=== PATIENT | male | born 1960 | race Caucasian/White ===

== ENCOUNTER 2019-08-10 07:39 | Observation (INO) ==
[2019-08-10] MEDS ORDERED: NITROGLYCERIN SL 0.4 MG/TAB TAB SL PRN ×2 (07:49→11:24)
[2019-08-10] MEDS ORDERED: ASPIRIN CHEW 324 MG PO STA (07:49)
--- NOTE | 2019-08-10 07:53 | Emergency Department Note ---
History of Present Illness General Chief complaint: Chest Pain Stated complaint: CHEST PAIN,SOB Source: patient Mode of arrival: ambulatory Limitations: no limitations History of Present Illness Maximum Pain Intensity: 3 This patient is a 58-year-old male who presents to the emergency department complaining of chest pain. The patient states that he was loading a table and developed a sudden, severe pain in the center of his chest. He states this occurred 45 minutes prior to arrival. He states there was associated shortness of breath and sweating. He states he has never had symptoms like this before. He states his current discomfort was a 10/10 and now rates his pain a 3/10. He states pain is better when he is resting. He did not take any medication prior to arrival here. Patient denies any history of heart disease. He is a smoker. He denies any medical problems, but does note that he does not regularly see a primary care provider. He has never had a stress test. Patient notes a history of DE in both his mother and father. Home Medications Home Medications Medication Instructions Recorded Confirmed Type No Known Home Medications 08/10/19 08/10/19 History Allergies Allergy/AdvReac Type Severity Reaction Status Date / Time No Known Allergies Allergy Unverified 08/10/19 08:02 Past Med/Surg History Medical History Alcohol use (Chronic) Tobacco use (Chronic) Surgical History History of hemorrhoidectomy (Chronic) Family History Father Heart disease Coronary heart disease Hypertension Mother Heart disease Hypertension Cancer Brother Coronary heart disease Cancer Social History Preferred Language: Icelandic Communication Ability: Effective 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 Beliefs That Will Affect Care: None Current Living Situation: Alone Other Information That Helps Us Care for You: No Feels Safe at Home: Yes Safety Concerns: Feels Safe At This Time Smoking Status: Current every day smoker Tobacco Type: cigarettes ; Cigarettes Per Day: 20-40 ; Do You Dip or Chew Tobacco: No ; Second Hand Exposure: No ; Tobacco Cessation Education Requested by Patient: No Hx Alcohol Use: Yes (6 beers a day) Alcohol type: beer Hx Substance Use: Yes substance use type: marijuana Review of Systems A total of 10 systems reviewed and were otherwise negative Physical Exam Vital Signs Vital Signs - 24 hr 08/10/19 07:39 08/10/19 08:02 08/10/19 08:22 Temperature 36.6 C Temperature Source Oral Sepsis Recent Fever Within 48 Hours No Sepsis New/Unexplained Change in Mental Status No Sepsis Action Taken by Nursing No Action Required Pulse Rate 70 63 Pulse Rate [Apical] 65 Pulse Rhythm Regular Regular Pulse Rhythm [Apical] Regular Pulse Strength Normal Pulse Strength [Apical] Normal Respiratory Rate 22 20 18 Respiratory Effort / Characteristics Non-Labored Spontaneous Non-Labored Spontaneous Respiratory Depth Normal Normal Respiratory Pattern Regular Regular Blood Pressure 146/99 H Blood Pressure [Right Arm] 140/93 Blood Pressure Mean 114 Blood Pressure Mean [Right Arm] 108 Blood Pressure Position Sitting Blood Pressure Position [Right Arm] Lying Pulse Oximetry 96 96 94 Oxygen Delivery Method Room Air Room Air Room Air 08/10/19 08:58 Temperature Temperature Source Sepsis Recent Fever Within 48 Hours Sepsis New/Unexplained Change in Mental Status Sepsis Action Taken by Nursing Pulse Rate Pulse Rate [Apical] 61 Pulse Rhythm Pulse Rhythm [Apical] Regular Pulse Strength Pulse Strength [Apical] Normal Respiratory Rate 20 Respiratory Effort / Characteristics Non-Labored Spontaneous Respiratory Depth Normal Respiratory Pattern Regular Blood Pressure Blood Pressure [Right Arm] 142/97 H Blood Pressure Mean Blood Pressure Mean [Right Arm] 112 Blood Pressure Position Blood Pressure Position [Right Arm] Sitting Pulse Oximetry 96 Oxygen Delivery Method Room Air VITALS: Vitals are noted on the nurse's note and reviewed by myself. GENERAL: This is a 58-year-old male, in mild distress, anxious appearing, well- developed well-nourished. SKIN: The skin was without rashes. EARS: External auditory canals clear, tympanic membranes pearly chance without erythema or effusion bilaterally. EYES: Pupils equal round and reactive to light and accommodation. MOUTH: Mucous membranes moist. Tonsils are not enlarged. Pharynx without erythema or exudate. NECK: Supple without nuchal rigidity. No lymphadenopathy. HEART: Regular rate and rhythm without murmurs gallops or rubs. LUNGS: Clear to auscultation bilaterally without wheezes, rales or rhonchi. No retractions or accessory muscle use. ABDOMEN: Positive bowel sounds x 4. Soft, nontender to palpation. MUSCULOSKELETAL: No reproducible tenderness to palpation. EXTREMITIES: No peripheral edema. NEURO: Patient was alert and oriented to person place and time. Course Consultations Consultation #1: [id number]: Yelena Carrillo PA-C, [facility] hospitalist [facility] hospitalist team was consulted for admission. Administered Medications Discontinued Medications Aspirin (Aspirin) 324 mg PO NOW STA Stop: 08/10/19 07:50 Last Admin: 08/10/19 07:53 Dose: 324 mg Documented by: [id number] Gabapentin (Neurontin) 1,200 mg PO 1130 ONE Stop: 08/10/19 11:31 Last Admin: 08/10/19 12:02 Dose: Not Given Documented by: [id number] Medical Decision Making Differential Diagnosis Differential diagnosis includes acute coronary syndrome, pulmonary embolism, pneumothorax, pericarditis, myocarditis, endocarditis, anxiety, musculoskeletal pain, GERD, costochondritis, pneumonia, among others. Home Medications Current Medication List: was personally reviewed by me Laboratory Data Attestation: I reviewed the patient's lab results. Result diagrams: 08/10/19 07:50 08/10/19 07:50 Lab Results 08/10/19 08/10/19 08/10/19 Range/Units 07:50 07:50 07:50 WBC 8.32 (4.8-10.8) K/uL RBC 5.18 (4.7-6.1) M/uL Hgb 17.1 (14.0-18.0) g/dL Hct 48.6 (42-52) % MCV 93.8 (80-100) fL MCH 33.0 (25-34) pg MCHC 35.2 (32-36) g/dL RDW Std Deviation 44.0 (36.4-46.3) fL RDW Coeff of Clyde 12.8 (11.5-14.5) % Plt Count 191 (130-400) K/uL MPV 10.8 H (7.4-10.4) fL Immature Gran % (Auto) 0.1 % Neut % (Auto) 58.8 % Lymph % (Auto) 29.8 % [place] % (Auto) 6.9 % Eos % (Auto) 4.2 % Baso % (Auto) 0.2 % Immature Gran # (Auto) 0.01 (0.00-0.02) K/uL Neut # (Auto) 4.89 (1.4-6.5) K/uL Lymph # (Auto) 2.48 (1.2-3.4) K/uL [place] # (Auto) 0.57 (0.11-0.59) K/uL Eos # (Auto) 0.35 (0-0.5) K/uL Baso # (Auto) 0.02 (0-0.2) K/uL PT 10.0 (9.0-12.0) Seconds INR 1.0 (0.9-1.1) APTT 25.5 (21.0-31.0) Seconds PTT Ratio 0.9 Sodium 138 (136-145) mmol/L Potassium 3.9 (3.5-5.1) mmol/L Chloride 105 (98-107) mmol/L Carbon Dioxide 25 (21-32) mmol/L Anion Gap 9.0 (3-11) BUN 17 (7-18) mg/dl Creatinine 1.08 (0.6-1.4) mg/dl Est Cr Clr Drug Dosing 81.8 ml/min Est GFR ( Amer) 87.2 Est GFR (Non-Af Amer) 75.3 BUN/Creatinine Ratio 15.5 (10-20) Glucose 93 (70-99) mg/dl Calcium 9.8 (8.5-10.1) mg/dl Total Bilirubin 0.9 (0.2-1) mg/dl AST 29 (15-37) U/L ALT 27 (12-78) U/L Alkaline Phosphatase 69 (45-117) U/L POC Troponin I (0-0.045) ng/ml Troponin I 0.074 H* (0-0.045) ng/ml Total Protein 8.7 H (6.4-8.2) gm/dl Albumin 4.5 (3.4-5.0) gm/dl Globulin 4.2 H (2.5-4.0) gm/dl Albumin/Globulin Ratio 1.1 (0.9-2) Hepatitis C Ab Screen (Neg) 08/10/19 08/10/19 Range/Units 07:50 08:03 WBC (4.8-10.8) K/uL RBC (4.7-6.1) M/uL Hgb (14.0-18.0) g/dL Hct (42-52) % MCV (80-100) fL MCH (25-34) pg MCHC (32-36) g/dL RDW Std Deviation (36.4-46.3) fL RDW Coeff of Clyde (11.5-14.5) % Plt Count (130-400) K/uL MPV (7.4-10.4) fL Immature Gran % (Auto) % Neut % (Auto) % Lymph % (Auto) % [place] % (Auto) % Eos % (Auto) % Baso % (Auto) % Immature Gran # (Auto) (0.00-0.02) K/uL Neut # (Auto) (1.4-6.5) K/uL Lymph # (Auto) (1.2-3.4) K/uL [place] # (Auto) (0.11-0.59) K/uL Eos # (Auto) (0-0.5) K/uL Baso # (Auto) (0-0.2) K/uL PT (9.0-12.0) Seconds INR (0.9-1.1) APTT (21.0-31.0) Seconds PTT Ratio Sodium (136-145) mmol/L Potassium (3.5-5.1) mmol/L Chloride (98-107) mmol/L Carbon Dioxide (21-32) mmol/L Anion Gap (3-11) BUN (7-18) mg/dl Creatinine (0.6-1.4) mg/dl Est Cr Clr Drug Dosing ml/min Est GFR ( Amer) Est GFR (Non-Af Amer) BUN/Creatinine Ratio (10-20) Glucose (70-99) mg/dl Calcium (8.5-10.1) mg/dl Total Bilirubin (0.2-1) mg/dl AST (15-37) U/L ALT (12-78) U/L Alkaline Phosphatase (45-117) U/L POC Troponin I 0.06 H (0-0.045) ng/ml Troponin I (0-0.045) ng/ml Total Protein (6.4-8.2) gm/dl Albumin (3.4-5.0) gm/dl Globulin (2.5-4.0) gm/dl Albumin/Globulin Ratio (0.9-2) Hepatitis C Ab Screen Neg (Neg) Imaging Data Attestation: I personally reviewed and interpreted this imaging study as follows: Radiologist's Impression: XR chest 1V portable HISTORY: Atypical Chest Pain COMPARISON: Chest 12/15/2007. FINDINGS: Calcified granuloma within the left lung base. Otherwise, lungs are clear. The heart is top normal in size. No pleural effusions. No pneumothorax. No evidence for pulmonary edema. IMPRESSION: No acute process. ECG Data Attestation: I personally reviewed and interpreted this ECG as follows: Indication: chest pain Rate (beats per minute): 60 Rhythm: normal sinus Findings: + peaked T-waves (inferior) and + T-wave inversion (aVL); no ectopy Comparison ECG Date: no prior available Blood Pressure Blood Pressure Findings: Elevated blood pressure Blood Pressure Disposition: further management by hospitalist MDM Narrative The patient is a 58-year-old male who presents today complaining of chest pain. Labs revealed no leukocytosis, anemia or significant electrolyte abnormalities. Initial troponin was found to be elevated at 0.074. Patient had EKG x2 with no ST segment abnormalities. Patient's pain resolved shortly after arriving to the emergency department. He was given aspirin in the emergency department. Case was discussed with the [facility] Hospitalist service, who agreed to evaluate the patient for further care. The patient's case was discussed with Dr. Teran, who agreed with my evaluation and treatment plan. Impression & Plan Non-ST elevation (NSTEMI) myocardial infarction, Chest pain, Elevated troponin Discharge Plan Visit Data *Final* Discharge Date/Time: 08/10/19 10:58 Chief Complaint: Chest Pain Stated Complaint: CHEST PAIN,SOB ED Provider: Gabino Teran ED Midlevel Provider: Rosy Quesada Discharge Problem: Non-ST elevation (NSTEMI) myocardial infarction, Chest pain, Elevated troponin Patient Disposition: Admitted As Inpatient Discharge Instructions Interventions: ED Discharge Assessment Last Done: 08/10/19 10:58 Discharge Problem: Chest pain Qualifiers: Chest pain type: unspecified Qualified Code(s): R07.9 - Chest pain, unspecified
[2019-08-10 08:04] LABS: Basophils # (auto) 0.02 K/uL (0-0.2); Basophils % (auto) 0.2 %; Eosinophils # (auto) 0.35 K/uL (0-0.5); Eosinophils % (auto) 4.2 %; Hematocrit (blood only) 48.6 % (42-52); Hemoglobin 17.1 g/dL (14.0-18.0); Immature Granulocytes # (auto) 0.01 K/uL (0.00-0.02); Immature Granulocytes % (auto) 0.1 %; Lymphocytes # (auto) 2.48 K/uL (1.2-3.4); Lymphocytes % (auto) 29.8 %; Mean Corpuscular Hgb Conc 35.2 g/dL (32-36); Mean Corpuscular Volume 93.8 fL (80-100); Mean Platelet Volume 10.8 fL (7.4-10.4); Monocytes # (auto) 0.57 K/uL (0.11-0.59); Monocytes % (auto) 6.9 %; Neutrophils # (auto) 4.89 K/uL (1.4-6.5); Neutrophils % (auto) 58.8 %; Platelet Count 191 K/uL (130-400); RDW Coefficient of Variation 12.8 % (11.5-14.5); Red Blood Count 5.18 M/uL (4.7-6.1); White Blood Count 8.32 K/uL (4.8-10.8)
--- NOTE | 2019-08-10 08:10 | XRay Report ---
XR chest 1V portable HISTORY: Atypical Chest Pain COMPARISON: Chest 12/15/2007. FINDINGS: Calcified granuloma within the left lung base. Otherwise, lungs are clear. The heart is top normal in size. No pleural effusions. No pneumothorax. No evidence for pulmonary edema. IMPRESSION: No acute process. Electronically signed by: Evans Vance M.D. 08/10/2019 8:09 AM
[2019-08-10 08:16] LABS: Albumin Level 4.5 gm/dl (3.4-5.0); BUN Creatinine Ratio 15.5 (10-20); Calcium 9.8 mg/dl (8.5-10.1); Creatinine Clr Calc Pharmacy 81.8 ml/min; Est GFR (African American) 87.2; Est GFR (Non-African American) 75.3; Potassium 3.9 mmol/L (3.5-5.1)
[2019-08-10 08:21] LABS: Partial Thromboplastin Ratio 0.9; Partial Thromboplastin Time 25.5 Seconds (21.0-31.0)
[2019-08-10 08:49] LABS: Albumin Globulin Ratio 1.1 (0.9-2); Bilirubin,Total 0.9 mg/dl (0.2-1); Globulin 4.2 gm/dl (2.5-4.0); Total Protein 8.7 gm/dl (6.4-8.2); Troponin I 0.074 ng/ml (0-0.045)
--- NOTE | 2019-08-10 09:49 | History & Physical Report ---
Date of Service August 10, 2019 Assessment & Plan (1) Chest pain: Pt is 58 y/o M with PMH tobacco use, alcohol use presented with complaint of chest pain today occurred while lifting table. Pain described as sharp anterior chest and nonradiating with associated nausea, diaphoresis, dizziness and SOB that improved upon ER arrival with rest. In ER afebrile, P: 70, R: 22, BP: 146/99, 96% on RA. EKG sinus rhythm, early repolarization changes. Troponin: 0.07. CXR: no acute findings CHEST PAIN R/O ACS. Risk factors: tobacco use, FH CAD -In ER was given ASA 324mg -Pt currently CP free -Monitor Vitals -Repeat EKG in am -Will trend troponin -Echo -Lipid panel, A1c in AM -Aspirin -Nitro prn CP and repeat EKG for CP -Will keep NPO for now -SONALI score 1-2, will hold on heparin IV currently and plan to start if increasing troponin -Cardiology consult (2) Tobacco use: Smokes 1-2ppd -Smoking cessation encouraged -Denies nicotine patch (3) Alcohol use: Drinks 6 beers/day. Last drink at 9:30PM yesterday. Denies hx alcohol withdrawal -Alcohol withdrawal at risk protocol with Gabapentin, Ativan prn -Monitor -Alcohol cessation encouraged DVT Prophylaxis -SCDs Does not follow with PCP for routine care Pt was seen and care coordinated with Dr Beltran. See addendum History of Present Illness Chief Complaint: CP Primary Care Provider: NO PCP Pt is 58 y/o M with PMH tobacco use, alcohol use presented to ER with complaint of chest pain today. No known history CAD, HTN, DM, however patient has not followed up with PCP for 10 years. Patient states this morning around 7 AM was lifting and carrying a table when he started with mid anterior chest pain described as sharp with associated diaphoresis, dizziness, shortness of breath, nausea. He reports also had some tingling sensation to left arm. He rates initial pain as 10 out of 10 on pain scale. Patient presented to ER reporting chest pain 3 out of 10 on pain scale after resting with no other symptoms. No prior treatment prior to hospital arrival. Since in ER pt reports is CP free and he received 324mg ASA. 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 Drinks 6 beers a day. Last drink 9:30PM yesterday. Denies hx alcohol withdrawal in past. Family history of CAD with father MT age 42 and fatal MT age 52, brother MT in his 40s. Denies fever/chills, V/D/C, FELIZ, syncope, vision changes, neck pain, orthopnea, palpitations, cough, sore throat, choking, otalgia, rhinorrhea, abdominal pain, extremity weakness, extremity edema, rashes, urinary symptoms. Allergies Allergy/AdvReac Type Severity Reaction Status Date / Time No Known Allergies Allergy Unverified 08/10/19 08:02 Home Medications Home Medications Medication Instructions Recorded Confirmed Type No Known Home Medications 08/10/19 08/10/19 History Past Med/Surg History Medical History Alcohol use (Chronic) Tobacco use (Chronic) Surgical History History of hemorrhoidectomy (Chronic) Family History Father Heart disease Coronary heart disease Hypertension Mother Heart disease Hypertension Cancer Brother Coronary heart disease Cancer Social History Preferred Language: Uzbek Communication Ability: Effective 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 Beliefs That Will Affect Care: None Current Living Situation: Alone Other Information That Helps Us Care for You: No Feels Safe at Home: Yes Safety Concerns: Feels Safe At This Time Smoking Status: Current every day smoker Tobacco Type: cigarettes ; Cigarettes Per Day: 20-40 ; Do You Dip or Chew Tobacco: No ; Second Hand Exposure: No ; Tobacco Cessation Education Requested by Patient: No Hx Alcohol Use: Yes (6 beers a day) Alcohol type: beer Hx Substance Use: Yes substance use type: marijuana Review of Systems Review of Systems: All systems reviewed & are unremarkable except as noted in HPI & below Physical Exam Physical Exam: General: no distress, WDWN Head: normocephalic, atraumatic Eyes: PERRL, EOM's intact, conjunctiva non-injected, anicteric ENT: normal inspection external ears, nose, mucous membranes moist Neck: supple, trachea midline Lungs: clear, no respiratory distress, no wheezing/rhonchi/rales CV: RRR, no murmur, chest non-tender to palpation no pretibial edema Abd: normal BS, soft, non-tender Ext: no cyanosis, no calf tenderness Neuro: A&O x 3, no focal deficits noted, normal affect Skin: warm, dry Results & Data Vital Signs (Past 12 Hours) Vital Signs Temp Pulse Pulse Resp BP BP Pulse Ox 08/10/19 08:58 61 20 142/97 H 96 08/10/19 08:22 65 18 140/93 94 08/10/19 08:02 63 20 96 08/10/19 07:39 36.6 C 70 22 146/99 H 96 Laboratory Results Short CBC 08/10/19 Range/Units 07:50 WBC 8.32 (4.8-10.8) K/uL Hgb 17.1 (14.0-18.0) g/dL Hct 48.6 (42-52) % Plt Count 191 (130-400) K/uL BMP 08/10/19 07:50 Sodium 138 Potassium 3.9 Chloride 105 Carbon Dioxide 25 BUN 17 Creatinine 1.08 Glucose 93 Calcium 9.8 Cardiac Enzymes 08/10/19 Range/Units 07:50 Troponin I 0.074 H* (0-0.045) ng/ml Liver Function 08/10/19 Range/Units 07:50 Total Bilirubin 0.9 (0.2-1) mg/dl AST 29 (15-37) U/L ALT 27 (12-78) U/L Alkaline Phosphatase 69 (45-117) U/L Albumin 4.5 (3.4-5.0) gm/dl Diagnostic Findings CXR: IMPRESSION: No acute process. Code Status & VTE Plan VTE Prophylaxis Plan VTE Prophylaxis will be ordered: Yes Supervising Physician Co-Signing Physician Notes Pt was seen and examined. Agreed with Yelena DARNELL exam, assessment and plan. 58 y/o M with PMH tobacco use, alcohol use presented to ER with complaint of chest pain starting this morning. Patient said that this morning after lifting and carrying a table he developed mid anterior chest pain. He described the pain as sharp radiating to his left arm. Chest pain associated with diaphoresis, dizziness, shortness of breath and nausea. Currently patient denies any chest pain and SOB. EKG on admission showed no ischemic changes. Troponin on admission 0.0.74. CXR showed no acute finding. Received ASA 324 mg in the ER. Will monitor closely in tele. Will consult cardiology for possible cardiac cath. Will trend troponin and will get an echo today. Will keep NPO for possible cath. Consider to start on heparin drip after discussing with cardio or if troponin trend up. MD Devin
[2019-08-10] MEDS ORDERED: ONDANSETRON INJ 2 MG/ML 2 ML VIAL IV PRN (11:24)
[2019-08-10] MEDS ORDERED: GABAPENTIN 1200MG ALCOHOL WITHDRAWAL LOAD PO STA (11:24)
[2019-08-10] MEDS ORDERED: LORazepam 1 MG/2 ML VIAL IV PRN (11:24)
[2019-08-10] MEDS ORDERED: ACETAMINOPHEN 325 MG TAB PO PRN (11:24)
[2019-08-10] MEDS ORDERED: GABAPENTIN 600 MG TAB PO ONE (11:30)
[2019-08-10 12:44] LABS: Amphetamines+Metham, Urine Neg (Neg); Barbiturates, Urine Neg (Neg); Benzodiazepine, Urine Neg (Neg); Cocaine, Urine Neg (Neg); MDMA (Ecstacy), Urine Neg (Neg); Methadone, Urine Neg (Neg); Opiate, Urine Neg (Neg); Phencyclidine, Urine Neg (Neg)
--- NOTE | 2019-08-10 13:45 | Cardiology Consultation ---
Date of Consultation August 10, 2019 Assessment & Plan (1) Non-ST elevation (NSTEMI) myocardial infarction: (2) Tobacco use: (3) Dyslipidemia, goal LDL below 70: Patient currently pain-free. Recommend IV heparin in addition of statin therapy at this time. Risks, benefits, alternatives to cardiac catheterization discussed with patient and his family at length. He is agreeable. Patient is a drug-eluting stent candidate if necessary. Bedside 2D transthoracic echocardiogram will be performed now. Repeat troponin ordered with results pending. Further recommendations pending results of resting 2D transthoracic echocardiogram and cardiac catheterization. History of Present Illness Reason for Consultation: Chest pain, elevated troponin Requesting Physician: Dr. Beltran Attending Physician: Yu Beltran MD History of Present Illness 58-year-old patient presented emergency department with chest discomfort. Patient had been lifting a table this morning when he developed sharp severe chest pain radiating to his left arm. Pain became quite severe with associated heaviness, diaphoresis, shortness of breath, nausea, and near syncope. Discomfort lasted for nearly 1 hour. He was brought to the emergency department by family members. Initial troponin mildly elevated. No ischemic ECG changes. Patient treated with aspirin in the ER. Discomfort spontaneously resolved. No dysrhythmias on telemetry since admission. Occasional PVCs noted. Currently pain-free and resting comfortably. Admits to heavy tobacco use and significant family history of premature CAD as noted below. Admits to lack of medical care over the past 15 years. Takes no medications on a regular basis. Allergies Allergy/AdvReac Type Severity Reaction Status Date / Time No Known Allergies Allergy Unverified 08/10/19 08:02 Home Medications Home Medications Medication Instructions Recorded Confirmed Type No Known Home Medications 08/10/19 08/10/19 History Patient History Medical History Alcohol use (Chronic) Tobacco use (Chronic) Surgical History History of hemorrhoidectomy (Chronic) Family History Father Heart disease Coronary heart disease Hypertension Mother Heart disease Hypertension Cancer Brother Coronary heart disease Cancer Social History Preferred Language: Icelandic Communication Ability: Effective 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 Beliefs That Will Affect Care: None Current Living Situation: Alone Other Information That Helps Us Care for You: No Feels Safe at Home: Yes Safety Concerns: Feels Safe At This Time Smoking Status: Current every day smoker Tobacco Type: cigarettes ; Cigarettes Per Day: 20-40 ; Do You Dip or Chew Tobacco: No ; Second Hand Exposure: No ; Tobacco Cessation Education Requested by Patient: No Hx Alcohol Use: Yes (6 beers a day) Alcohol type: beer Hx Substance Use: Yes substance use type: marijuana Review of Systems Review of Systems: All systems reviewed & are unremarkable except as noted in HPI & below Physical Exam Physical Exam: General: NAD, AAO x3, well nourished. HEENT: Normocephalic. Atraumatic. Conjunctiva pink, no scleral icterus. Neck: No carotid bruits, the carotid upstrokes are brisk. No JVD. No HJR Heart: Regular normal S-1 and S-2 no S-3 or S-4 gallop. No murmurs or rub appreciated. PMI is not displaced. No RV heave. Lungs: Clear bilateral without rales , rhonchi, or wheeze. Abdomen: Normal bowel sounds. Soft. Nontender. No masses or organomegaly. No abdominal bruits. Extremities: No clubbing, cyanosis, or edema. Pulses: radial=2/4, Dorsalis pedis =2/4, posterior tibial=2/4. Neuro: Cranial nerves grossly intact. No focal motor deficit. Results & Data Vital Signs (Past 12 Hours) Vital Signs Temp Pulse Pulse Resp BP BP Pulse Ox 08/10/19 10:58 60 18 138/88 95 08/10/19 10:10 62 18 143/87 H 93 08/10/19 08:58 61 20 142/97 H 96 08/10/19 08:22 65 18 140/93 94 08/10/19 08:02 63 20 96 08/10/19 07:39 36.6 C 70 22 146/99 H 96
[2019-08-10] MEDS ORDERED: HEPARIN (PORCINE) 1000 UNIT/ML 10 ML (CATH LAB USE ONLY) ONE ×2 (14:15→16:08)
[2019-08-10] MEDS ORDERED: NiCARDipine HCL INJ 2.5 MG/ML 10 ML AMP ONE (14:16)
[2019-08-10] MEDS ORDERED: MIDAZOLAM HCL 1 MG/ML 2ML VIAL ONE ×2 (14:16→15:45)
[2019-08-10] MEDS ORDERED: fentaNYL citrate 100 MCG/2 ML VIAL ONE (14:16)
[2019-08-10] MEDS ORDERED: NITROGLYCERIN/D5W 100MCG/ML 20ML SYR ONE (14:17)
--- NOTE | 2019-08-10 14:39 | Pre Anesthesia Assessment ---
Date of Service August 10, 2019 Pre Sedation Assessment Vital Signs Temp Pulse Pulse Resp BP BP Pulse Ox 08/11/19 11:07 36.5 C 51 L 20 138/87 08/11/19 08:00 56 L 08/11/19 06:43 36.5 C 72 18 119/77 96 08/11/19 03:13 36.7 C 74 18 112/83 95 08/10/19 23:00 37.0 C 75 18 112/72 96 08/10/19 22:42 37.2 C 71 18 125/85 95 08/10/19 22:20 72 08/10/19 21:42 37.2 C 59 L 18 127/88 94 08/10/19 20:42 36.9 C 67 18 144/88 H 94 08/10/19 19:42 37.1 C 64 18 117/74 93 08/10/19 19:34 36.9 C 62 18 125/88 93 08/10/19 18:27 66 16 138/92 96 08/10/19 18:00 59 L 18 143/91 H 98 08/10/19 17:25 56 L 20 140/87 96 08/10/19 17:10 56 L 21 148/95 H 96 08/10/19 16:55 36.9 C 55 L 20 163/98 H 98 08/10/19 16:40 36.9 C 55 L 16 147/100 H 97 Cardiovascular RRR, no murmur, no edema Respiratory normal respiratory effort, lungs clear to auscultation Pre-Sedation Airway Assessment Smoking Status: Current every day smoker Hx Sleep Apnea: No Hx Difficult Intubation: No Short, Thick Neck: No Mallampati Class: III ASA: ASA4 Procedure Planning Contraindications for Sedation: none Current Medications Reviewed: Yes Notes The planned sedation has been discussed with the patient. Informed Consent was obtained. I have identified the patient, determined the appropriateness of sedation and have assessed the patient immediately prior to the procedure. All medicine(s) and interventions are by my order.
[2019-08-10] MEDS ORDERED: HEPARIN SODIUM/DEXTROSE 25,000 UNITS/500 ML BAG IV SCH (14:45)
[2019-08-10] MEDS ORDERED: HEPARIN IV BOLUS 7,000 UNITS in SYRINGE 0 ML IV ONE (14:45)
[2019-08-10 14:52] LABS: Chol HDL Ratio 2; Cholesterol 172 mg/dl (0-200); HDL Cholesterol 80 mg/dl; LDL Cholesterol Calculated 80 mg/dl; Triglycerides 60 mg/dl (0-150); VLDL Cholesterol 12 mg/dl
[2019-08-10] MEDS ORDERED: INFLUENZA ADMINISTRATION CHARGE ONE (15:15)
[2019-08-10] MEDS ORDERED: INFLUENZA VIRUS QUAD VACCINE 0.5 ML SYR IM ONE (15:15)
--- NOTE | 2019-08-10 15:28 | Post Anesthesia Assessment ---
Date of Service August 10, 2019 Post Sedation Assessment Vital Signs Temp Pulse Pulse Resp BP BP Pulse Ox 08/11/19 11:07 36.5 C 51 L 20 138/87 08/11/19 08:00 56 L 08/11/19 06:43 36.5 C 72 18 119/77 96 08/11/19 03:13 36.7 C 74 18 112/83 95 08/10/19 23:00 37.0 C 75 18 112/72 96 08/10/19 22:42 37.2 C 71 18 125/85 95 08/10/19 22:20 72 08/10/19 21:42 37.2 C 59 L 18 127/88 94 08/10/19 20:42 36.9 C 67 18 144/88 H 94 08/10/19 19:42 37.1 C 64 18 117/74 93 08/10/19 19:34 36.9 C 62 18 125/88 93 08/10/19 18:27 66 16 138/92 96 08/10/19 18:00 59 L 18 143/91 H 98 08/10/19 17:25 56 L 20 140/87 96 08/10/19 17:10 56 L 21 148/95 H 96 08/10/19 16:55 36.9 C 55 L 20 163/98 H 98 08/10/19 16:40 36.9 C 55 L 16 147/100 H 97 Recovery Score Activity: Moves 4 extremities Respiration: Deep Breath/Cough Circulation: +/-20% PreAnes Value Consciousness: Fully Awake Oxygen Saturation: > 92% On Room Air Post Sedation Plan On clinical assessment, the patient appears to have tolerated the sedation without complications. Patient is recovering as anticipated. Patient will continue to be monitored by nursing and may be discharged when sedation discharge criteria are met per below protocol. Upon Completions of procedure and additional 15 minutes continue every 5 minute vital signs and the P.A.R. score; then discharge to a Phase I or Fast Track to Phase II per the following guidelines: * Discharge Patient to appropriate Phase II area if PAR is 8 or greater or return to pre- procedure baseline. The post - procedure orders will be as directed. * If PAR score is less than 8 or not return to pre-procedure baseline then patient will follow Phase I monitoring till PAR is reached for Phase II. The Phase I may be done in procedure room or may call to secure a Phase I area. * If naloxone or flumazenil are used for reversal, hold in Phase I for continued monitoring from when last reversal dose was given for a minimum of 60 minutes or longer pending the nurse and/or physician discretion of patient condition before discharge to Phase II. Please call the Sedation Physician to re-evaluate and complete post-note for discharge to Phase II area. Do NOT discharge from procedure sedation or Phase 1 until post- sedation evaluation note is complete by procedure /sedation MD Sedation Discharge Instructions to be given to the patient at discharge to home.
--- NOTE | 2019-08-10 15:38 | Cardiac Catheterization ---
Cardiac Cath Procedure Full Procedure Date August 10, 2019 Pre-Procedure Diagnosis Pre-Procedure Diagnosis: Non STEMI AUC Score AUC Score: 8 Post-Procedure Diagnosis Post-Procedure Diagnosis: Severe CAD and Normal Intracardiac Pressures Procedure(s) Performed Procedure(s) Performed: Coronary Angiography and Left Heart Cath Tack Cleaner Sy Wright DO Surgery Assistant(s) Mc U[employer] RESEARCHER Estimated Blood Loss Estimated Blood Loss: 5cc Medication(s) Medication(s): Fentanyl, Heparin, Lidocaine 1%, Nicardipine and Versed Summary of Findings 70% proximal LAD Hemodynamics Rest Ao:: 121/83/101 Final Ao: 138/80/104 LV: 138/2/12 Recommendations Recommendations: PCI without planned CABG Specimens Specimens: None Radiation Exposure (mGy) 1097 Contrast (mls) 70 Fluids (cc crystalloids) Fluids (cc crystalloids): 80cc Nss Anesthesia Moderate sedation. Start 1451. End 1521. Sedation monitor: Venkat GLASGOW Procedural Complication(s) None Disposition Patient remained in cathlab for PCI I attest to the content of the Intraoperative Record and any orders documented therein. Any exceptions are noted below. 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 Cardiac Status Clinical evaluation leading to the procedure CAD Presenation: Non STEMI Anginal Classification: CCS IV Heart Failure: No Cardiogenic Shock within 24 Hours: No Cardiac Arrest within 24 Hours: No Imaging Studies Past 6 Months: No Stress Studies Past 6 Months: No STEMI OR Non-STEMI Symptom Onset Date: 08/10/19 Symptom Onset Time: 08:33 Thrombolytics: No Coronary Anatomy Dominant: Right Left Main (% Stenosis): Normal LAD (% Stenosis): Proximal (70%) and Mid (20%) D1 (% Stenosis): Ostial (10%) D2 (% Stenosis): Normal Circumflex (% Stenosis): Proximal (10%) OM1 (% Stenosis): Normal L PL1 (% Stenosis): Normal RCA (% Stenosis): Mid (10%) and Distal (10%) R PDA (% Stenosis): Normal R PL1 (% Stenosis): Normal AM (% Stenosis): Normal Diagnostic Physicians Name: Sy Wright DO Status: Urgent Closure Device Percutaneous Entry Location: Radial Closure Device: Radial Band Recommendations: PCI without planned CABG Intraprocedure Events Significant Disection: No Perforation: No
[2019-08-10] MEDS ORDERED: GABAPENTIN 600 MG TAB PO SCH (15:45)
[2019-08-10] MEDS ORDERED: CLOPIDOGREL BISULFATE 300 MG TAB ONE (16:23)
--- NOTE | 2019-08-10 16:46 | Post Anesthesia Assessment ---
Date of Service August 10, 2019 Post Sedation Assessment Vital Signs Temp Pulse Pulse Resp BP BP Pulse Ox 08/10/19 10:58 60 18 138/88 95 08/10/19 10:10 62 18 143/87 H 93 08/10/19 08:58 61 20 142/97 H 96 08/10/19 08:22 65 18 140/93 94 08/10/19 08:02 63 20 96 08/10/19 07:39 97.9 F 70 22 146/99 H 96 Recovery Score Activity: Moves 4 extremities Respiration: Deep Breath/Cough Circulation: +/-20% PreAnes Value Consciousness: Fully Awake Oxygen Saturation: > 92% On Room Air Discharge Sedation Level of Care: Fast Track Phase II Post Sedation Plan On clinical assessment, the patient appears to have tolerated the sedation without complications. Patient is recovering as anticipated. Patient will continue to be monitored by nursing and may be discharged when sedation discharge criteria are met per below protocol. Upon Completions of procedure and additional 15 minutes continue every 5 minute vital signs and the P.A.R. score; then discharge to a Phase I or Fast Track to Phase II per the following guidelines: * Discharge Patient to appropriate Phase II area if PAR is 8 or greater or return to pre- procedure baseline. The post - procedure orders will be as directed. * If PAR score is less than 8 or not return to pre-procedure baseline then patient will follow Phase I monitoring till PAR is reached for Phase II. The Phase I may be done in procedure room or may call to secure a Phase I area. * If naloxone or flumazenil are used for reversal, hold in Phase I for continued monitoring from when last reversal dose was given for a minimum of 60 minutes or longer pending the nurse and/or physician discretion of patient condition before discharge to Phase II. Please call the Sedation Physician to re-evaluate and complete post-note for discharge to Phase II area. Do NOT discharge from procedure sedation or Phase 1 until post- sedation evaluation note is complete by procedure /sedation MD Sedation Discharge Instructions to be given to the patient at discharge to home.
--- NOTE | 2019-08-10 16:49 | Cardiac Catheterization ---
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 Cardiac Status Clinical evaluation leading to the procedure CAD Presenation: Non STEMI Anginal Classification: CCS III Heart Failure: No Cardiogenic Shock within 24 Hours: No Cardiac Arrest within 24 Hours: No Imaging Studies Past 6 Months: Yes Stress Studies Past 6 Months: No Diagnostic Physicians Name: Sacha Ruiz MD Status: Elective Closure Device Percutaneous Entry Location: Radial Closure Device: Radial Band Recommendations: PCI without planned CABG PCI Indication: PCI for high risk Non-EDWARD Lesion Segment Name: ostial LAD Culprit Artery: Yes Stenosis Prior to Rx (%): 70-80 Chronic Total Occlusion: No IVUS: No FFR: No Pre-Procedure SONALI Flow: 3 Previously Treated Lesion: No Lesion Complexity: Non-High/Non-C Lesion Length (mm): 10 Thrombus Present: No Bifurcation Lesion: Yes Guidewire Across Lesion: Stenosis Post-Procedure (%): 0 Post-Procedure SONALI Flow: 3 Devices(s) Deployed: Yes Yes Intraprocedure Events Significant Disection: No Perforation: No Cardiac Cath Procedure Full Procedure Date August 10, 2019 Pre-Procedure Diagnosis Pre-Procedure Diagnosis: Non STEMI AUC Score AUC Score: 8 Post-Procedure Diagnosis Post-Procedure Diagnosis: Severe CAD and Successful PCI Procedure(s) Performed Procedure(s) Performed: Coronary Angiography, Drug Eluting Stent and IVUS Screenplay Writer Sacha Ruiz MD Licensed Occupational Therapist(s) Mc ORTEGA Estimated Blood Loss Estimated Blood Loss: 15 Medication(s) Medication(s): Clopidogrel, Fentanyl, Heparin, Nicardipine, Nitroglycerin and Versed Summary of Findings Indication: High risk NSTEMI Access: 6 Fr right radial artery Catheters: JL4 guide Findings: For full details of patient's coronary angiography please cath report dictated by Dr. Wright. Briefly, patient found to have severe single vessel disease including a 70-80 % stenosis involving the ostium of his LAD. Decision to proceed with PCI. -- PCI -- Antithrombotic therapy: Heparin, clopidogrel Procedure: Left main cannulated with JL 4.0 guide BMW wire passed across lesion into distal vessel IVUS used to assess extent of disease, degree of calcification and involvement with left main. Found to have 40 to 50% mid LAD stenosis, mild to moderately calcified severe stenosis at the ostium without significant left main involvement. Pro-water wire placed into circumflex Ostial LAD stented with 2.75 x 15 mm Sheng drug-eluting stent Stent post-dilated with stent balloon IC vasodilators administered for spasm IVUS showed well-expanded stent without edge complications and proximal end of stent ending just at ostium of LAD Post procedure SONALI 3 flow, stent well expanded with minimal residual stenosis and no apparent cardiac complications. Arterial Closure: TR band Summary: 1. Successful PCI of ostial LAD with single drug-eluting stent (2.75 x 15 mm Sheng). Recommendations: To PCU for continued monitoring Loaded with clopidogrel 600 mg in tutorial laboratory supervisor Continue dual-antiplatelet therapy for at least one year Continue statin, and ASCVD risk factor modification Consult cardiac Rehab Hemodynamics Rest Ao:: 137/80/103 Final Ao: 148/81/111 LV: 138/12 Recommendations Recommendations: PCI without planned CABG Specimens Specimens: None Radiation Exposure (mGy) 2206 Contrast (mls) 120 Fluids (cc crystalloids) Fluids (cc crystalloids): 100 Drains Drains: none Anesthesia moderate Procedural Complication(s) None Disposition Patient remained in cathlab for PCI
[2019-08-10] MEDS: ATORVASTATIN 40 MG TAB PO SCH (17:09)
[2019-08-10] MEDS: GABAPENTIN 600 MG TAB PO SCH (20:25)
[2019-08-11] MEDS: GABAPENTIN 600 MG TAB PO SCH (03:16)
[2019-08-11] MEDS ORDERED: GABAPENTIN 600 MG TAB PO SCH ×2 (05:45→10:00)
[2019-08-11 06:45] VITALS: TEMP 97.7; O2SAT 96
[2019-08-11 07:33] LABS: Hematocrit (blood only) 45.9 % (42-52); Hemoglobin 15.8 g/dL (14.0-18.0); Mean Corpuscular Hemoglobin 32.8 pg (25-34); Mean Corpuscular Hgb Conc 34.4 g/dL (32-36); Mean Corpuscular Volume 95.4 fL (80-100); Mean Platelet Volume 10.9 fL (7.4-10.4); Platelet Count 190 K/uL (130-400); RDW Standard Deviation 44.9 fL (36.4-46.3); Red Blood Count 4.81 M/uL (4.7-6.1); White Blood Count 9.16 K/uL (4.8-10.8)
[2019-08-11] MEDS: ATORVASTATIN 40 MG TAB PO SCH (07:55)
[2019-08-11 07:59] LABS: Estimated Average Glucose 117 mg/dl; Hemoglobin A1C 5.7 % (4.5-5.6)
[2019-08-11 08:09] LABS: BUN Creatinine Ratio 20.2 (10-20); Calcium 8.8 mg/dl (8.5-10.1); Creatinine Clr Calc Pharmacy 92.1 ml/min; Est GFR (African American) 100.6; Est GFR (Non-African American) 86.8; Magnesium 2.2 mg/dl (1.8-2.4); Potassium 4.1 mmol/L (3.5-5.1)
[2019-08-11] MEDS ORDERED: ASPIRIN 81 MG ECTAB PO SCH (09:00)
[2019-08-11] MEDS ORDERED: CLOPIDOGREL BISULFATE 75 MG TAB PO SCH (09:00)
[2019-08-11 11:10] VITALS: PULSE 51
[2019-08-11] MEDS ORDERED: METOPROLOL SUCC 25MG EXT REL TAB PO SCH (12:15)
--- NOTE | 2019-08-11 12:19 | Cardiology Progress Note ---
Date of Service August 11, 2019 Assessment & Plan (1) Non-ST elevation (NSTEMI) myocardial infarction: (2) Presence of drug coated stent in LAD coronary artery: (3) Tobacco use: (4) Dyslipidemia, goal LDL below 70: Drug-eluting stent implanted to the proximal LAD without complication. D iscussed importance of continuing dual antiplatelet therapy with aspirin and Plavix for minimum of 6 months post percutaneous intervention. Continue high intensity statin therapy. Add low-dose beta-corrine and FELIX inhibitor today. Patient will be provided with a prescription for sublingual nitroglycerin at time of discharge. Plan repeat resting 2D transthoracic echocardiogram in 6 to 12 weeks. Post cardiac catheterization restrictions listed below. Activity limitations discussed at length with patient. I will see him back for close follow-up in 1 week. ACTIVITY RECOMMENDATIONS: It is common to feel weak and fatigue for a few days. * Do not drive or operate any motorized equipment for the next three days. * Limit stair usage (2 or 3 trips a day only) for the next three days. * Do not lift anything heavier than 10 pounds for the next three days. * Do not engage in vigorous exercise or any sports for the next five days. * You may shower the day after your procedure, but do not immerse the area for three days. Cleanse the site gently with soap and water. SPECIAL CARE INSTRUCTIONS: * You may replace the pressure dressing or band-aid the morning after the procedure. * After your procedure, it is normal to have a small bruise or small lump at the site. Examine your site daily for any change in the bruise or lump, redness, swelling, drainage or numbness. Notify your doctor if any change. BLEEDING: * If there is a small amount of bleeding at the site, lie down and apply firm pressure with a clean cloth for ten minutes. When the bleeding stops, lie quietly keeping the procedure limb straight for six hours. Notify your doctor as soon as possible. * If the bleeding does not stop after ten minutes or if there is a large amount of bleeding or spurting, call 911 immediately. Continue to lie down and hold firm pressure until help arrives. SKIN IRRITATION: * You may experience some redness and/or swelling in the area where radiation was administered. If any skin irritation occurs, please contact your family physician. FOLLOW UP VISIT: Cardiology follow-up in 1 week. Subjective Patient seen and examined the bedside. Feeling well from a cardiovascular perspective. No recurrent chest discomfort overnight. No dysrhythmias on telemetry. Mildly elevated systolic blood pressure noted intermittently. Patient denies palpitations, lightheadedness, or dizziness. Tolerated a.m. meal and medications. Family present at bedside. Patient offers no complaints at this time. Requesting discharge if possible. Review of Systems Review of Systems: All systems reviewed & are unremarkable except as noted in HPI & below Physical Exam Physical Exam: General: NAD, AAO x3, well nourished. HEENT: Normocephalic. Atraumatic. Conjunctiva pink, no scleral icterus. Neck: No carotid bruits, the carotid upstrokes are brisk. No JVD. No HJR Heart: Regular normal S-1 and S-2 no S-3 or S-4 gallop. No murmurs or rub appreciated. PMI is not displaced. No RV heave. Lungs: Clear bilateral without rales , rhonchi, or wheeze. Abdomen: Normal bowel sounds. Soft. Nontender. No masses or organomegaly. No abdominal bruits. Extremities: No clubbing, cyanosis, or edema. Pulses: radial=2/4, Dorsalis pedis =2/4, posterior tibial=2/4. Neuro: Cranial nerves grossly intact. No focal motor deficit. Results & Data Vital Signs (Past 12 Hours) Vital Signs Temp Pulse Pulse Resp BP Pulse Ox 08/11/19 11:07 36.5 C 51 L 20 138/87 08/11/19 08:00 56 L 08/11/19 06:43 36.5 C 72 18 119/77 96 08/11/19 03:13 36.7 C 74 18 112/83 95
--- NOTE | 2019-08-11 12:46 | Hospitalist Progress Note ---
Date of Service August 11, 2019 Assessment & Plan (1) Chest pain: Pt is 58 y/o M with PMH tobacco use, alcohol use presented with complaint of chest pain today occurred while lifting table. Pain described as sharp anterior chest and nonradiating with associated nausea, diaphoresis, dizziness and SOB that improved upon ER arrival with rest. In ER afebrile, P: 70, R: 22, BP: 146/99, 96% on RA. EKG sinus rhythm, early repolarization changes. Troponin: 0.07. 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 Last drink at 9:30PM yesterday. Denies hx alcohol withdrawal -Alcohol withdrawal at risk protocol with Gabapentin, Ativan prn -No signs and/or symptoms of alcohol withdrawal -He has been ambulating without any difficulty -Will be discharged home this afternoon DVT Prophylaxis -SCDs Outpatient appointment will be made with [facility] provider in [place] or [facility] He will see automotive sales manager as an outpatient in 1 week Subjective 08/11 The patient was seen and examined in telemetry unit She is status post DONNA placement in LAD yesterday Denies any complaints as of this morning Has been ambulating without any difficulty Wants to go home this afternoon and will be discharged Review of Systems Review of Systems: All systems reviewed and are unremarkable except as noted below Respiratory: no cough and no dyspnea Cardiovascular: no chest pain, no dyspnea and no palpitations Gastrointestinal: no abdominal pain, no bloating, no nausea and no vomiting Physical Exam Physical Exam: Lying in bed comfortably Constitutional: well developed and well nourished; no acute distress and not ill appearing Eyes: PERRL, conjunctivae normal, anicteric sclerae ENMT: external ear and nose normal, oropharynx normal Neck: trachea midline, no thyromegaly Respiratory: normal respiratory effort; no respiratory distress Auscultation: lungs clear to auscultation bilaterally Cardiovascular: Rate/Rhythm: regular rate and regular rhythm Heart Sounds: no murmur Gastrointestinal (Abdomen): Inspection/Auscultation: abdomen normal to inspection and normal bowel sounds Percussion/Palpation: abdomen soft Musculoskeletal: No acute arthritis in any joint Neurologic: moves all extremities; no focal motor deficits Lymphatic: no cervical or axillary lymphadenopathy Results & Data Vital Signs (Past 12 Hours) Vital Signs Temp Pulse Pulse Resp BP Pulse Ox 08/11/19 11:07 36.5 C 51 L 20 138/87 08/11/19 08:00 56 L 08/11/19 06:43 36.5 C 72 18 119/77 96 08/11/19 03:13 36.7 C 74 18 112/83 95 Laboratory Results Short CBC 08/11/19 Range/Units 07:17 WBC 9.16 (4.8-10.8) K/uL Hgb 15.8 (14.0-18.0) g/dL Hct 45.9 (42-52) % Plt Count 190 (130-400) K/uL BMP 08/11/19 07:17 Sodium 140 Potassium 4.1 Chloride 108 H Carbon Dioxide 27 BUN 19 H Creatinine 0.96 Glucose 88 Calcium 8.8 Cardiac Enzymes 08/10/19 08/10/19 Range/Units 13:48 19:40 Troponin I 5.060 H* 1.950 H* (0-0.045) ng/ml Medications Administered Current Inpatient Medications Acetaminophen (Tylenol) 650 mg PO Q4H PRN PRN Reason: Pain or Fever Stop: 09/09/19 11:23 Aspirin (Ecotrin Ectab) 81 mg PO [facility] Stop: 09/10/19 08:59 Last Admin: 08/11/19 07:55 Dose: 81 mg Documented by: Atorvastatin Calcium (Lipitor) 40 mg PO [facility] Stop: 09/09/19 13:44 Last Admin: 08/11/19 07:55 Dose: 40 mg Documented by: Clopidogrel Bisulfate (Plavix) 75 mg PO [facility] Stop: 09/10/19 08:59 Last Admin: 08/11/19 07:55 Dose: 75 mg Documented by: Gabapentin (Neurontin) 600 mg PO Q8H [facility] Stop: 08/12/19 02:01 Last Admin: 08/11/19 11:11 Dose: 600 mg Documented by: Gabapentin (Neurontin) 600 mg PO Q12H [facility] Stop: 08/13/19 02:01 Gabapentin (Neurontin) 600 mg PO Q24H [facility] Stop: 08/14/19 06:01 Lorazepam (Ativan) 1 mg in 2 mls @ 2 mls/min IV ONE PRN; Protocol PRN Reason: EtoH Withdrawal AWSS 6-10 Stop: 09/09/19 11:23 Lisinopril (Zestril) 2.5 mg PO QAM [facility] Stop: 09/10/19 12:14 Metoprolol Succinate (Toprol Xl) 12.5 mg PO QAM [facility] Stop: 09/10/19 12:14 Nitroglycerin (Nitrostat) 0.4 mg SL UD PRN PRN Reason: Chest Pain Stop: 09/09/19 11:23 Ondansetron HCl (Zofran) 4 mg IV Q6H PRN PRN Reason: Nausea Stop: 09/09/19 11:23
[2019-08-11 13:56] VITALS: BP 125/85
--- NOTE | 2019-08-12 08:21 | Discharge Summary ---
Date of Service August 12, 2019 Admission HPI Per Admitting Provider Pt is 58 y/o M with PMH tobacco use, alcohol use presented to ER with complaint of chest pain today. No known history CAD, HTN, DM, however patient has not followed up with PCP for 10 years. Patient states this morning around 7 AM was lifting and carrying a table when he started with mid anterior chest pain described as sharp with associated diaphoresis, dizziness, shortness of breath, nausea. He reports also had some tingling sensation to left arm. He rates initial pain as 10 out of 10 on pain scale. Patient presented to ER reporting chest pain 3 out of 10 on pain scale after resting with no other symptoms. No prior treatment prior to hospital arrival. Since in ER pt reports is CP free and he received 324mg ASA. 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 Drinks 6 beers a day. Last drink 9:30PM yesterday. Denies hx alcohol withdrawal in past. Family history of CAD with father PA age 42 and fatal PA age 52, brother PA in his 40s. Denies fever/chills, V/D/C, FELIZ, syncope, vision changes, neck pain, orthopnea, palpitations, cough, sore throat, choking, otalgia, rhinorrhea, abdominal pain, extremity weakness, extremity edema, rashes, urinary symptoms. Admission Exam Per Admitting Provider Physical Exam: General: no distress, WDWN Head: normocephalic, atraumatic Eyes: PERRL, EOM's intact, conjunctiva non-injected, anicteric ENT: normal inspection external ears, nose, mucous membranes moist Neck: supple, trachea midline Lungs: clear, no respiratory distress, no wheezing/rhonchi/rales CV: RRR, no murmur, chest non-tender to palpation no pretibial edema Abd: normal BS, soft, non-tender Ext: no cyanosis, no calf tenderness Neuro: A&O x 3, no focal deficits noted, normal affect Skin: warm, dry Principal Diagnosis Non-ST elevation PA status post cardiac cath with placement of DONNA in LAD Discharge Exam Constitutional well developed and well nourished; no acute distress and not ill appearing Eyes PERRL, conjunctivae normal, anicteric sclerae ENMT external ear and nose normal, oropharynx normal Neck trachea midline, no thyromegaly Respiratory normal respiratory effort; no respiratory distress Auscultation: lungs clear to auscultation bilaterally Cardiovascular Rate/Rhythm: regular rate and regular rhythm Heart Sounds: no murmur Gastrointestinal (Abdomen) Inspection/Auscultation: abdomen normal to inspection and normal bowel sounds Percussion/Palpation: abdomen soft Neurologic moves all extremities; no focal motor deficits Lymphatic no cervical or axillary lymphadenopathy Discharge Data Allergies Allergy/AdvReac Type Severity Reaction Status Date / Time No Known Allergies Allergy Unverified 08/10/19 08:02 Consultations 08/10/19 08:54 ED Decision to Admit Stat 08/10/19 11:24 Consult Cardiology Routine 08/10/19 13:45 Consult Cardiac Catheterization Routine 08/10/19 16:59 Consult Cardiac Rehabilitation Routine Procedures Performed Operation Date: 08/10/19 14:15 Actual Procedures p Cath, Left with Cors and Vent - Sy Wright DO s Cineradiography w/Routine Exam - Sy Wright DO s IVUS Coronary Single Vessel - Timbo Ruiz MD s Drug Eluting Stent SGl Vessel - Timbo Ruiz MD Ordered Studies 08/10/19 14:15 CL Cath Imgs for PACS use only Routine 08/10/19 16:40 CL IVUS Coronary Single Vessel Routine Hospital Course (1) Chest pain: Pt is 58 y/o M with PMH tobacco use, alcohol use presented with complaint of chest pain today occurred while lifting table. Pain described as sharp anterior chest and nonradiating with associated nausea, diaphoresis, dizziness and SOB that improved upon ER arrival with rest. In ER afebrile, P: 70, R: 22, BP: 146/99, 96% on RA. EKG sinus rhythm, early repolarization changes. Troponin: 0.07. 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 Last drink at 9:30PM yesterday. Denies hx alcohol withdrawal -Alcohol withdrawal at risk protocol with Gabapentin, Ativan prn -No signs and/or symptoms of alcohol withdrawal -He has been ambulating without any difficulty -Will be discharged home this afternoon DVT Prophylaxis -SCDs Outpatient appointment will be made with [facility] provider in [facility] He will see terrazzo finisher as an outpatient in 1 week Total Time Total Time Spent Total Time Spent (In Minutes): 35 minutes Total Time Includes: Examination of the Patient, Discharge Planning, Medication Reconciliation and Communication With Other Providers Discharge Plan Discharge Items Patient Disposition: Home - Self-Care Reason For Visit: CHEST PAIN Discharge Diagnosis: Non-ST elevation PA status post cardiac cath with placement of DONNA in LAD Condition on Discharge: Good Activity: Per Instructions section Non-emergency contact: Primary Care Provider Call non-emergency contact if: you have any medication questions and your symptoms worsen Follow-up/Referrals: PCPGAGE [Primary Care Provider] - 08/13/19 12:45 pm (Your appointment is with Dr. Dove on 08/13 at 12:45 PM. Please keep appointment with Dr. Byrne/[facility] terrazzo finisher as a scheduled) Diet: Heart Healthy Addtl Attending Provider Instructions: ACTIVITY RECOMMENDATIONS: It is common to feel weak and fatigue for a few days. * Do not drive or operate any motorized equipment for the next three days. * Limit stair usage (2 or 3 trips a day only) for the next three days. * Do not lift anything heavier than 10 pounds for the next three days. * Do not engage in vigorous exercise or any sports for the next five days. * You may shower the day after your procedure, but do not immerse the area for three days. Cleanse the site gently with soap and water. SPECIAL CARE INSTRUCTIONS: * You may replace the pressure dressing or band-aid the morning after the procedure. * After your procedure, it is normal to have a small bruise or small lump at the site. Examine your site daily for any change in the bruise or lump, redness, swelling, drainage or numbness. Notify your doctor if any change. BLEEDING: * If there is a small amount of bleeding at the site, lie down and apply firm pressure with a clean cloth for ten minutes. When the bleeding stops, lie quietly keeping the procedure limb straight for six hours. Notify your doctor as soon as possible. * If the bleeding does not stop after ten minutes or if there is a large amount of bleeding or spurting, call 911 immediately. Continue to lie down and hold firm pressure until help arrives. SKIN IRRITATION: * You may experience some redness and/or swelling in the area where radiation was administered. If any skin irritation occurs, please contact your family physician. Pending Studies at Discharge: No Stand-Alone Forms: Call Back Authorization, [facility] Medications and DC Order Prescriptions: New atorvastatin 40 mg Tablet 40 mg PO QAM 30 Days Qty: 30 RF: 0 gabapentin 600 mg Tablet 600 mg PO UD Qty: 4 RF: 0 clopidogrel 75 mg Tablet 75 mg PO QAM 30 Days Qty: 30 RF: 0 aspirin [Ecotrin Low Strength] 81 mg Tablet,Delayed Release (Dr/Ec) 81 mg PO QAM 30 Days Qty: 30 RF: 0 nitroglycerin [Nitrostat] 0.4 mg Tablet, Sublingual 0.4 mg sublingual UD PRN (Reason: chest pain) 30 Days Qty: 25 RF: 0 metoprolol succinate 25 mg Tablet Extended Release 24 Hr 12.5 mg PO QAM 30 Days Qty: 15 RF: 0 lisinopril 2.5 mg Tablet 2.5 mg PO QAM 30 Days Qty: 30 RF: 0 No Action No Known Home Medications RF: 0 Discharge Orders: Discharge Order (Routine); Ordered 08/11/19 Ordered By: Eduard Oneal/Other Patient Handouts: Clopidogrel Bisulfate Oral tablet, Gabapentin Oral tablet, Metoprolol Succinate Oral tablet extended-release, Nitroglycerin Sublingual tablet, Lisinopril Oral tablet, Aspirin Oral tablet, Stent Coronary, Meds Taking Admission Data Admit Date/Time: 08/10/19 09:43 Attending Provider: Eduard Donato Admit Provider: Yu Beltran Primary Care Provider: PCP,NO Other Providers: Sy Wright ; Yu Beltran Other Interventions: Discharge Summary Assessment (RN) Last Done: 08/11/19 13:55 DC Date/Time DO NOT enter until pt leaves facility: 08/11/19 14:40
[2019-08-12] MEDS ORDERED: GABAPENTIN 600 MG TAB PO SCH ×2 (09:45→14:00)
[2019-08-13] MEDS ORDERED: GABAPENTIN 600 MG TAB PO SCH (21:45)
[2019-08-14] MEDS ORDERED: GABAPENTIN 600 MG TAB PO SCH (06:00)
== END 2019-08-11 14:40 | disposition home or self-care (01) ==
LOC: ED 07:39 → 2N 07:39 → SUATTDRO 09:43 → 2N 10:58 → 2S 16:54